=== PATIENT | female | born 1990 | race Caucasian/White ===

== ENCOUNTER 2017-11-27 16:42 | Inpatient (IN) | payer MEDICAID, OTHER ==
[2017-11-28 00:11] LABS: ALANINE AMINOTRANSFERASE 41 IU/L (13-69); ALBUMIN/GLOBULIN RATIO 0.96; ALKALINE PHOSPHATASE 164 IU/L (42-121); ANION GAP 11 (8-16); ASPARTATE AMINO TRANSFERASE 36 IU/L (15-46); BILIRUBIN,INDIRECT 0.1 mg/dl (0-1.1); BILIRUBIN,TOTAL 0.1 mg/dl (0.2-1.3); BLOOD UREA NITROGEN 11 mg/dl (7-20); CALCIUM 9.1 mg/dl (8.4-10.2); CARBON DIOXIDE 26 mmol/L (21-31); CHLORIDE 106 mmol/L (97-110); CREATININE 0.79 mg/dl (0.44-1.00); GLUCOSE 132 mg/dl (70-220); SODIUM 139 mmol/L (135-144); TOTAL PROTEIN 6.1 g/dl (6.1-8.1)
[2017-11-28] MEDS: LACTATED RINGER'S 1,000 ML IV ×3 (00:15→20:28)
[2017-11-28 00:17] LABS: INR 0.84; PROTIME 11.6 Sec (11.9-14.9); PT RATIO 0.9
[2017-11-28] MEDS: metFORMIN 500 MG TAB PO ×3 (00:42→19:14)
[2017-11-28 06:01] LABS: ADD MAN DIFF? NO
[2017-11-28 06:04] LABS: BASOPHIL # 0.1 10^3/ul (0.0-0.1); BASOPHILS % 0.5 % (0.0-2.0); EOSINOPHILS # 0.1 10^3/ul (0.0-0.5); EOSINOPHILS % 0.5 % (0.0-7.0); HEMATOCRIT 33.3 % (37.0-47.0); HEMOGLOBIN 10.9 g/dl (12.0-16.0); LYMPHOCYTES # 2.4 10^3/ul (0.8-2.9); LYMPHOCYTES % 21.7 % (15.0-51.0); MEAN CORPUSCULAR HEMOGLOBIN 27.8 pg (29.0-33.0); MEAN CORPUSCULAR HGB CONC 32.7 g/dl (32.0-37.0); MEAN CORPUSCULAR VOLUME 84.9 fl (82.0-101.0); MEAN PLATELET VOLUME 9.9 fl (7.4-10.4); MONOCYTE # 0.7 10^3/ul (0.3-0.9); MONOCYTES % 6.7 % (0.0-11.0); NEUTROPHIL # 7.6 10^3/ul (1.6-7.5); NEUTROPHILS % 68.9 % (39.0-77.0); PLATELET COUNT 288 10^3/UL (140-415); RED BLOOD COUNT 3.92 10^6/ul (4.20-5.40)
[2017-11-28 07:01] LABS: ADD UMIC YES; UR ASCORBIC ACID NEGATIVE (NEGATIVE); UR BACTERIA FEW /HPF (NONE SEEN); UR BILIRUBIN (Dip) NEGATIVE (NEGATIVE); UR BLOOD (Dip) 1+ mg/dL (NEGATIVE); UR CLARITY CLEAR (CLEAR); UR COLOR YELLOW (YELLOW); UR GLUCOSE (Dip) NEGATIVE (NEGATIVE); UR KETONES (Dip) TRACE mg/dL (NEGATIVE); UR LEUKOCYTE ESTERASE (Dip) NEGATIVE Leu/ul (NEGATIVE); UR MUCUS FEW /HPF (NONE SEEN); UR NITRITE (Dip) NEGATIVE (NEGATIVE); UR RBC 5 /HPF (0-5); UR SPECIFIC GRAVITY (Dip) 1.029 (1.003-1.030); UR SQUAMOUS EPITHELIAL CELL MODERATE /HPF (FEW); UR TOTAL PROTEIN (Dip) 1+ mg/dl (NEGATIVE); UR UROBILINOGEN (Dip) 1+ mg/dL (NEGATIVE); UR WBC 4 /HPF (0-5)
[2017-11-28 21:56] LABS: COLLECTION PERIOD 24 hrs
[2017-11-28 22:40] LABS: CREATININE,URINE RANDOM 46.65 mg/dl (20-320)
[2017-11-28 22:45] LABS: COLLECTION PERIOD 24 hrs; SCRET 0.79 mg/dl (0.44-1.00); VOLUME 3000 ml/24hrs; VOLUME 3000 mls
[2017-11-28 22:56] LABS: CREATININE 0.87 mg/dl (0.44-1.00)
[2017-11-29] MEDS ORDERED: MISOPROSTOL 200 MCG TAB PR
[2017-11-29] MEDS ORDERED: LACTATED RINGER'S 1,000 ML IV*
[2017-11-29] MEDS ORDERED: IBUPROFEN 600 MG TAB PO
[2017-11-29] MEDS ORDERED: METHYLERGONOVINE 0.2 MG INJ IM
[2017-11-29] MEDS ORDERED: OXYTOCIN 30 UNITS/LR 500 ML IV
[2017-11-29] MEDS ORDERED: BUTORPHANOL 1 MG INJ IV
[2017-11-29] MEDS ORDERED: CARBOPROST 250 MCG INJ IM
[2017-11-29 00:45] LABS: HEPATITIS B SURFACE ANTIGEN NEGATIVE (NEGATIVE)
[2017-11-29] MEDS ORDERED: AMPICILLIN 2 GM/NS (PMX) 100 ML IV (01:00)
[2017-11-29] MEDS: DINOPROSTONE 10 MG VAG SUPP VAG (02:50)
[2017-11-29] MEDS: LACTATED RINGER'S 1,000 ML IV ×3 (03:46→20:10)
[2017-11-29] MEDS ORDERED: AMPICILLIN 1 GM/NS (PMX) 50 ML IV (05:00)
[2017-11-29] MEDS: metFORMIN 500 MG TAB PO ×2 (08:08→17:32)
[2017-11-29 14:56] LABS: RAPID PLASMA REAGIN NONREACTIVE (NR)
[2017-11-30] MEDS: LACTATED RINGER'S 1,000 ML IV ×4 (04:42→22:20)
[2017-11-30] MEDS: metFORMIN 500 MG TAB PO ×2 (09:36→17:42)
[2017-11-30] MEDS: DINOPROSTONE 10 MG VAG SUPP VAG (15:25)
[2017-12-01] MEDS: LACTATED RINGER'S 1,000 ML IV ×3 (05:58→23:32)
[2017-12-01] MEDS: metFORMIN 500 MG TAB PO ×2 (09:29→22:18)
[2017-12-01 18:45] LABS: ADD MAN DIFF? NO
[2017-12-01 18:49] LABS: BASOPHILS % 0.2 % (0.0-2.0); EOSINOPHILS # 0.1 10^3/ul (0.0-0.5); EOSINOPHILS % 0.5 % (0.0-7.0); HEMATOCRIT 35.5 % (37.0-47.0); HEMOGLOBIN 11.5 g/dl (12.0-16.0); LYMPHOCYTES # 1.6 10^3/ul (0.8-2.9); LYMPHOCYTES % 12.8 % (15.0-51.0); MEAN CORPUSCULAR HEMOGLOBIN 27.4 pg (29.0-33.0); MEAN CORPUSCULAR HGB CONC 32.4 g/dl (32.0-37.0); MEAN CORPUSCULAR VOLUME 84.5 fl (82.0-101.0); MEAN PLATELET VOLUME 9.8 fl (7.4-10.4); MONOCYTE # 0.7 10^3/ul (0.3-0.9); MONOCYTES % 5.9 % (0.0-11.0); NEUTROPHIL # 9.9 10^3/ul (1.6-7.5); NEUTROPHILS % 79.4 % (39.0-77.0); PLATELET COUNT 297 10^3/UL (140-415); RED CELL DISTRIBUTION WIDTH 14.8 % (11.5-14.5)
[2017-12-01 18:49] LABS: WHITE BLOOD COUNT 12.5 10^3/ul (4.8-10.8)
[2017-12-01 19:10] LABS: ALANINE AMINOTRANSFERASE 56 IU/L (13-69); ALBUMIN 3.2 g/dl (3.3-4.9); ALBUMIN/GLOBULIN RATIO 1.03; ALKALINE PHOSPHATASE 170 IU/L (42-121); ANION GAP 13 (8-16); ASPARTATE AMINO TRANSFERASE 54 IU/L (15-46); BILIRUBIN,INDIRECT 0.1 mg/dl (0-1.1); BILIRUBIN,TOTAL 0.1 mg/dl (0.2-1.3); BLOOD UREA NITROGEN 13 mg/dl (7-20); CALCIUM 9.7 mg/dl (8.4-10.2); CARBON DIOXIDE 24 mmol/L (21-31); CHLORIDE 107 mmol/L (97-110); CREATININE 0.83 mg/dl (0.44-1.00); GLUCOSE 104 mg/dl (70-220); POTASSIUM 4.7 mmol/L (3.5-5.1); SODIUM 139 mmol/L (135-144); TOTAL PROTEIN 6.3 g/dl (6.1-8.1)
[2017-12-01 19:58] LABS: URIC ACID 5.9 mg/dl (3.1-7.9)
[2017-12-02] MEDS: LACTATED RINGER'S 1,000 ML IV ×3 (07:53→23:28)
[2017-12-02] MEDS: metFORMIN 500 MG TAB PO ×2 (07:54→20:25)
[2017-12-02] MEDS: MISOPROSTOL 25 MCG CAPSULE PO ×3 (07:57→17:30)
[2017-12-02 16:12] LABS: ADD MAN DIFF? NO
[2017-12-02 16:15] LABS: BASOPHILS % 0.3 % (0.0-2.0); EOSINOPHILS # 0.1 10^3/ul (0.0-0.5); EOSINOPHILS % 0.4 % (0.0-7.0); HEMATOCRIT 34.8 % (37.0-47.0); HEMOGLOBIN 11.4 g/dl (12.0-16.0); LYMPHOCYTES # 1.7 10^3/ul (0.8-2.9); LYMPHOCYTES % 14.1 % (15.0-51.0); MEAN CORPUSCULAR HEMOGLOBIN 27.6 pg (29.0-33.0); MEAN CORPUSCULAR HGB CONC 32.8 g/dl (32.0-37.0); MEAN CORPUSCULAR VOLUME 84.3 fl (82.0-101.0); MONOCYTE # 0.8 10^3/ul (0.3-0.9); NEUTROPHIL # 9.2 10^3/ul (1.6-7.5); NEUTROPHILS % 76.8 % (39.0-77.0); PLATELET COUNT 296 10^3/UL (140-415); RED BLOOD COUNT 4.13 10^6/ul (4.20-5.40); RED CELL DISTRIBUTION WIDTH 14.6 % (11.5-14.5)
[2017-12-02 16:45] LABS: URIC ACID 6.4 mg/dl (3.1-7.9)
[2017-12-02 16:46] LABS: ALANINE AMINOTRANSFERASE 63 IU/L (13-69); ALBUMIN 3.2 g/dl (3.3-4.9); ALBUMIN/GLOBULIN RATIO 1.03; ALKALINE PHOSPHATASE 171 IU/L (42-121); ANION GAP 13 (8-16); ASPARTATE AMINO TRANSFERASE 60 IU/L (15-46); BILIRUBIN,INDIRECT 0.1 mg/dl (0-1.1); BILIRUBIN,TOTAL 0.1 mg/dl (0.2-1.3); BLOOD UREA NITROGEN 11 mg/dl (7-20); CALCIUM 9.1 mg/dl (8.4-10.2); CARBON DIOXIDE 22 mmol/L (21-31); CHLORIDE 106 mmol/L (97-110); CREATININE 0.74 mg/dl (0.44-1.00); GLUCOSE 86 mg/dl (70-220); SODIUM 137 mmol/L (135-144); TOTAL PROTEIN 6.3 g/dl (6.1-8.1)
[2017-12-02] MEDS: OXYTOCIN 30 UNITS/LR 500 ML IV (19:55)
[2017-12-02] MEDS ORDERED: OXYTOCIN 30 UNITS/LR 500 ML IV (20:00)
[2017-12-02] MEDS: BUTORPHANOL 2 MG INJ IV (22:15)
[2017-12-03] MEDS ORDERED: FENTAnyl 2MCG/ML-ROPIV 0.2% 100 ML (01:56)
[2017-12-03] MEDS: LACTATED RINGER'S 1,000 ML IV ×2 (02:43→06:29)
[2017-12-03] MEDS: AMPICILLIN 2 GM/NS (PMX) 100 ML IV (07:32)
[2017-12-03] MEDS: metFORMIN 500 MG TAB PO (07:35)
[2017-12-03 08:42] LABS: ADD UMIC YES; UR ASCORBIC ACID NEGATIVE (NEGATIVE); UR BACTERIA FEW /HPF (NONE SEEN); UR BILIRUBIN (Dip) NEGATIVE (NEGATIVE); UR BLOOD (Dip) 1+ mg/dL (NEGATIVE); UR CLARITY CLEAR (CLEAR); UR COLOR YELLOW (YELLOW); UR GLUCOSE (Dip) NEGATIVE (NEGATIVE); UR KETONES (Dip) NEGATIVE (NEGATIVE); UR LEUKOCYTE ESTERASE (Dip) TRACE Leu/ul (NEGATIVE); UR MUCUS FEW /HPF (NONE SEEN); UR NITRITE (Dip) NEGATIVE (NEGATIVE); UR RBC 2 /HPF (0-5); UR SPECIFIC GRAVITY (Dip) 1.015 (1.003-1.030); UR SQUAMOUS EPITHELIAL CELL FEW /HPF (FEW); UR TOTAL PROTEIN (Dip) NEGATIVE (NEGATIVE); UR UROBILINOGEN (Dip) NEGATIVE (NEGATIVE); UR WBC 25 /HPF (0-5)
[2017-12-03] MEDS: FENTAnyl 2MCG/ML-ROPIV 0.2% 100 ML BAG EPI (08:53)
[2017-12-03] MEDS ORDERED: NALOXONE (0.4 MG/ML) INJ IV (09:00)
[2017-12-03] MEDS: AMPICILLIN 1 GM/NS (PMX) 50 ML IV (11:11)
[2017-12-03] MEDS: LIDOCAINE 1% (MPF) 30 ML INJ INJ (11:45)
[2017-12-03] MEDS: OXYTOCIN 30 UNITS/LR 500 ML IV (11:49)
[2017-12-03] MEDS ORDERED: LACTATED RINGER'S 1,000 ML IV (12:01)
[2017-12-03] MEDS: MAGNESIUM SULFATE 3 GM in DEXTROSE 5% 100 ML IVPB (12:22)
[2017-12-03] MEDS: MAGNESIUM SULFATE 20 GM/500 ML 500 ML IV ×2 (12:50→22:39)
[2017-12-03] MEDS ORDERED: ZOLPIDEM 5 MG TAB PO (14:00)
[2017-12-03] MEDS ORDERED: CARBOPROST 250 MCG INJ IM (14:00)
[2017-12-03] MEDS ORDERED: DIBUCAINE 1% 30 GM OINT PR (14:00)
[2017-12-03] MEDS ORDERED: OXYTOCIN 30 UNITS/LR 500 ML IV (14:00)
[2017-12-03] MEDS ORDERED: METHYLERGONOVINE 0.2 MG INJ IM (14:00)
[2017-12-03] MEDS ORDERED: HYDROCODONE/APAP (5/325) TAB PO (14:00)
[2017-12-03] MEDS ORDERED: MISOPROSTOL 200 MCG TAB PR (14:00)
[2017-12-03] MEDS: WITCH HAZEL/GLYCERIN PAD PR (14:16)
[2017-12-03] MEDS: BENZOCAINE 20% 56 ML SPRAY TOP (14:16)
[2017-12-03] MEDS: LANOLIN 7 GM TUBE TOP (14:16)
[2017-12-03] MEDS: HYDROCODONE/APAP (5/325) TAB PO (14:17)
[2017-12-03] MEDS ORDERED: GLUCAGON 1 MG INJ IM (14:30)
[2017-12-03] MEDS ORDERED: GLUCOSE GEL 15 GRAM TUBE BUCCAL (14:30)
[2017-12-03] MEDS ORDERED: DEXTROSE 50% 50 ML SYRINGE IV ×2 (14:30)
[2017-12-03] MEDS ORDERED: GLUCOSE GEL 15 GRAM TUBE PO ×2 (14:30)
[2017-12-03] MEDS: CEPHALEXIN 500 MG CAP PO (17:16)
[2017-12-03] MEDS: LACTATED RINGER'S 1,000 ML IV* ×2 (17:16→21:50)
[2017-12-03] MEDS: IBUPROFEN 600 MG TAB PO (17:29)
[2017-12-03 18:04] LABS: MAGNESIUM 3.3 mg/dl (1.7-2.5)
[2017-12-03] MEDS: ACCU-CHEK XX ×5 (20:05→22:38)
[2017-12-03] MEDS: SENNA/DOCUSATE NA (8.6MG/50MG) TAB PO (21:00)
[2017-12-03] MEDS: metFORMIN (XR) 500 MG TAB PO (21:28)
[2017-12-03] MEDS: MAGNESIUM HYDROXIDE 30ML CUP PO (21:28)
[2017-12-04] MEDS: CEPHALEXIN 500 MG CAP PO ×4 (00:20→17:22)
[2017-12-04] MEDS: IBUPROFEN 600 MG TAB PO ×4 (00:22→17:22)
[2017-12-04 01:08] LABS: MAGNESIUM 3.5 mg/dl (1.7-2.5)
[2017-12-04] MEDS: MAGNESIUM SULFATE 20 GM/500 ML 500 ML IV (04:28)
[2017-12-04] MEDS: LACTATED RINGER'S 1,000 ML IV* ×3 (04:31→21:50)
[2017-12-04] MEDS: ACCU-CHEK XX ×8 (07:30→21:43)
[2017-12-04 07:32] LABS: ADD MAN DIFF? NO
[2017-12-04 07:36] LABS: WHITE BLOOD COUNT 15.6 10^3/ul (4.8-10.8)
[2017-12-04 07:36] LABS: BASOPHIL # 0.1 10^3/ul (0.0-0.1); BASOPHILS % 0.4 % (0.0-2.0); EOSINOPHILS # 0.1 10^3/ul (0.0-0.5); EOSINOPHILS % 0.4 % (0.0-7.0); HEMATOCRIT 32.6 % (37.0-47.0); HEMOGLOBIN 10.5 g/dl (12.0-16.0); LYMPHOCYTES # 2.4 10^3/ul (0.8-2.9); LYMPHOCYTES % 15.4 % (15.0-51.0); MEAN CORPUSCULAR HEMOGLOBIN 27.1 pg (29.0-33.0); MEAN CORPUSCULAR HGB CONC 32.2 g/dl (32.0-37.0); MEAN PLATELET VOLUME 10.1 fl (7.4-10.4); MONOCYTE # 1.1 10^3/ul (0.3-0.9); NEUTROPHIL # 11.7 10^3/ul (1.6-7.5); NEUTROPHILS % 75.1 % (39.0-77.0); PLATELET COUNT 252 10^3/UL (140-415); RED BLOOD COUNT 3.88 10^6/ul (4.20-5.40)
[2017-12-04 08:08] LABS: MAGNESIUM 3.7 mg/dl (1.7-2.5)
[2017-12-04] MEDS: MAGNESIUM HYDROXIDE 30ML CUP PO ×2 (08:29→21:42)
[2017-12-04] MEDS: SENNA/DOCUSATE NA (8.6MG/50MG) TAB PO ×2 (08:29→21:35)
[2017-12-04] MEDS: metFORMIN (XR) 500 MG TAB PO ×2 (08:30→21:42)
[2017-12-04 12:49] LABS: MAGNESIUM 3.7 mg/dl (1.7-2.5)
[2017-12-04 20:09] LABS: ALANINE AMINOTRANSFERASE 64 IU/L (13-69); ALBUMIN 3.2 g/dl (3.3-4.9); ALBUMIN/GLOBULIN RATIO 1.06; ALKALINE PHOSPHATASE 157 IU/L (42-121); ANION GAP 12 (8-16); ASPARTATE AMINO TRANSFERASE 49 IU/L (15-46); BLOOD UREA NITROGEN 15 mg/dl (7-20); CALCIUM 9.6 mg/dl (8.4-10.2); CARBON DIOXIDE 28 mmol/L (21-31); CHLORIDE 104 mmol/L (97-110); GLUCOSE 120 mg/dl (70-220); POTASSIUM 4.5 mmol/L (3.5-5.1); SODIUM 139 mmol/L (135-144); TOTAL PROTEIN 6.2 g/dl (6.1-8.1)
[2017-12-05] MEDS: CEPHALEXIN 500 MG CAP PO ×3 (00:19→12:31)
[2017-12-05] MEDS: IBUPROFEN 600 MG TAB PO ×3 (00:19→12:32)
[2017-12-05] MEDS: LACTATED RINGER'S 1,000 ML IV* (05:50)
[2017-12-05] MEDS: MAGNESIUM HYDROXIDE 30ML CUP PO (08:56)
[2017-12-05] MEDS: SENNA/DOCUSATE NA (8.6MG/50MG) TAB PO (08:57)
[2017-12-05] MEDS: metFORMIN (XR) 500 MG TAB PO (08:57)
[2017-12-05] MEDS: VARICELLA VACCINE LIVE/PF 1,350 UNIT/0.5 ML ML SC* (09:00)
[2017-12-05] MEDS: MEASLES,MUMPS,RUBELLA VACCINE INJ SC* (09:00)
[2017-12-05] MEDS: DIPHTH/TET/ACEL PERTUSS (ADULT) 0.5 ML VIAL IM* (09:00)
== END 2017-12-05 15:51 | disposition home or self-care (01) | DRG 775 ==
LOC: OBT 16:42 → L-D 11-28 03:02 → PP1 12-03 13:31 → L-D 16:42 → OBT 20:15 → L-D 20:15
PROVIDERS: Obstetrics & Gynecology
PROC: 10E0XZZ Delivery of Products of Conception, External Approach (ICD-10-PCS; principal; 2017-12-03)
PROC: 0HQ9XZZ Repair Perineum Skin, External Approach (ICD-10-PCS; 2017-12-03)
PROC: 3E033VJ Introduction of Other Hormone into Peripheral Vein, Percutaneous Approach (ICD-10-PCS; 2017-12-03)
DX: O24.429 Gestational diabetes mellitus in childbirth, unspecified control (principal); O70.0 First degree perineal laceration during delivery; O13.4 Gestational [pregnancy-induced] hypertension without significant proteinuria, complicating childbirth; Z3A.38 38 weeks gestation of pregnancy; Z37.0 Single live birth
CPT/HCPCS: 62319; 76815; 76818; 80053; 81001; 82565; 82575; 82962; 83735; 84156; 84560; 85025; 85384; 85610; 85730; 86592; 86850; 86900; 86901; 87086; 87340